=== PATIENT | female | born 1950 | race Caucasian/White ===

== ENCOUNTER 2017-12-05 11:15 | Emergency (ER) | payer MEDICARE, SELFPAY ==
[2017-12-05 11:16] VITALS: BP 132/73; PULSE 74; RESP 17; TEMP 36.6; O2SAT 98; BMI 20.7
--- NOTE | 2017-12-05 11:29 | CT_ITS ---
STUDY: CT ORBITS WITHOUT CONTRAST REASON FOR EXAM: Female, 67 years old. Orbital injury. RADIATION DOSAGE (If Supplied By Facility): CTDIvol = ( 29.38 ) mGy, DLP = ( 275.66 ) mGycm TECHNIQUE: The patient was scanned in a multi detector CT scanner. Transaxial imaging was performed without the administration of intravenous contrast material. Sagittal and coronal images were reconstructed. Individualized dose optimization techniques were used for this CT. COMPARISON: None. FINDINGS: Normal globes. Normal intraconal spaces. Normal optic nerve sheath complex. Normal bilateral extraocular muscles. Normal lacrimal glands. Normal bilateral medial and inferior orbital machuca. Normal bilateral maxillary bones. Normal bilateral frontozygomatic arches. Normal bilateral zygomatic temporal arches. Normal frontal sinus. Normal ethmoidal sinuses. Normal maxillary sinuses. Normal sphenoid sinuses. Normal soft tissue structures. CT/Orb Sella Post Fossa Ear w/o IMPRESSION: Normal CT examination of the bilateral orbits. Electronically Signed: Randall Portillo MD at 12:05 EDT , Service support ,
--- NOTE | 2017-12-05 13:00 | ED.VISSUMM ---
- ER Visit Summary Date of Service: 12/05/17 Chief Complaint: [Injury left thigh] History of Present Illness: The patient is a 67 F [presents to the emergency department with complaint of an injury to her left eye that occurred about 3 days ago. Patient states that she was going to the basement and she stumbled and fell against the banister with her left orbit. Patient denies loss of consciousness. Patient states she has had a lot of swelling to that eye and now having drainage and discomfort. Patient had some intermittent blurred vision. Patient denies any fevers.] Physical Examination: [HEENT-PERRLA, EOMI. Cranial nerves II through XII grossly intact. TMs clear. Mucous membranes moist. No adenopathy. Left eye-patient has some diffuse soft tissue swelling to the upper and lower eyelids. Patient has conjunctival erythema diffusely left eye. Patient has some yellowish drainage noted diffusely about the eye. No hyphemas noted. Patient does have some diffuse tenderness over the orbit specifically medially. Cardiovascular-regular rate and rhythm without murmur or ectopy Lungs-clear to auscultation, chest wall stable without crepitus or subcu emphysema Abdomen-normoactive bowel sounds, soft, nontender, no rebound or rigidity, no peritoneal signs. Extremities-intact ?4, normal range of motion, normal pulses, atraumatic] Test Results: [CT scan of the orbits showed no fractures. Visual acuity was 20/50 right eye, 20/50 left eye, 20/50 both eyes.] Emergency Department Course and Treatment: [Patient will be started on gentamicin ophthalmic ointment. Patient will be referred to Dr. Eugene who is on-call for ophthalmology for follow-up.] Treatment Plan: [Patient to go directly to Dr. Eugene office and he will see her this afternoon.] Disposition: [Discharged to home in stable condition] Impression: [Contusion left thigh Conjunctivitis left eye] This note was generated with [employer] dictation software. It may contain incorrect words, spelling, and punctuation that were not noted in review of the chart prior to signing ED Disposition - Plan for ED Patient: Chief Complaint: Eye Problem Referrals: Phillip Le DO [Primary Care Provider] -
--- NOTE | 2017-12-05 13:04 | ED.DEP ---
ED Disposition - Plan for ED Patient: Chief Complaint: Eye Problem Instructions: ED Conjunctivitis Bacterial Referrals: Phillip Le DO [Primary Care Provider] - Zaheer Eugene MD [STAFF PHYSICIAN] - As soon as possible Additional Instructions: You have a contusion to your left eye
--- NOTE | 2017-12-05 13:05 | ED.DCSUM_ITS ---
- ER Visit Summary Date of Service: 12/05/17 Chief Complaint: [Injury left thigh] History of Present Illness: The patient is a 67 F [presents to the emergency department with complaint of an injury to her left eye that occurred about 3 days ago. Patient states that she was going to the basement and she stumbled and fell against the banister with her left orbit. Patient denies loss of consciousness. Patient states she has had a lot of swelling to that eye and now having drainage and discomfort. Patient had some intermittent blurred vision. Patient denies any fevers.] Physical Examination: [HEENT-PERRLA, EOMI. Cranial nerves II through XII grossly intact. TMs clear. Mucous membranes moist. No adenopathy. Left eye- patient has some diffuse soft tissue swelling to the upper and lower eyelids. Patient has conjunctival erythema diffusely left eye. Patient has some yellowish drainage noted diffusely about the eye. No hyphemas noted. Patient does have some diffuse tenderness over the orbit specifically medially. Cardiovascular-regular rate and rhythm without murmur or ectopy Lungs-clear to auscultation, chest wall stable without crepitus or subcu emphysema Abdomen-normoactive bowel sounds, soft, nontender, no rebound or rigidity, no peritoneal signs. Extremities-intact ?4, normal range of motion, normal pulses, atraumatic] Test Results: [CT scan of the orbits showed no fractures. Visual acuity was 20/ 50 right eye, 20/50 left eye, 20/50 both eyes.] Emergency Department Course and Treatment: [Patient will be started on gentamicin ophthalmic ointment. Patient will be referred to Dr. Eugene who is on-call for ophthalmology for follow-up.] Treatment Plan: [Patient to go directly to Dr. Eugene office and he will see her this afternoon.] Disposition: [Discharged to home in stable condition] Impression: [Contusion left thigh Conjunctivitis left eye] This note was generated with [employer] dictation software. It may contain incorrect words, spelling, and punctuation that were not noted in review of the chart prior to signing ED Disposition - Plan for ED Patient: Chief Complaint: Eye Problem Referrals: Phillip Le DO [Primary Care Provider] -
== END 2017-12-05 13:33 | disposition home or self-care (01) ==
PROVIDERS: Emergency Provider Emergency Medicine; Family Provider Student in an Organized Health Care Education/Training Program; PCP Student in an Organized Health Care Education/Training Program
DX: S00.12XA Contusion of left eyelid and periocular area, initial encounter (principal); W01.0XXA Fall on same level from slipping, tripping and stumbling without subsequent striking against object, initial encounter; Y93.01 Activity, walking, marching and hiking; Y92.009 Unspecified place in unspecified non-institutional (private) residence as the place of occurrence of the external cause; H10.32 Unspecified acute conjunctivitis, left eye
CPT/HCPCS: 70480; 99283; A4216